=== PATIENT | female | born 1980 | race Caucasian/White ===

== ENCOUNTER 2018-08-01 10:31 | Emergency (ER) | payer OTHER ==
[2018-08-01] MEDS ORDERED: MOTRIN 600 MG PO ONE (10:48)
[2018-08-01] MEDS ORDERED: MOTRIN 600 MG ONE (10:50)
--- NOTE | 2018-08-01 11:07 | ERPHSYRPT ---
- History of Present Illness Time Seen by Provider: 08/01/18 10:40 Source: patient Exam Limitations: clinical condition Patient Subjective Stated Complaint: Pt states "I was playing softball and my ankle rolled under and popped really loud." Triage Nursing Assessment: Pt presented alert and oriented X 3, skin pwd. Pt ambulates with a limp. PT right ankle swollen laterally and bruised. Physician History: PATIENT STATES SHE TWISTED HER RIGHT ANKLE YESTERDAY WHILE PLAYING SOFTBALL. HAS PAIN, SWELLING AND SLIGHT BRUISING OVER OUTER ASPECT OF RIGHT ANKLE. HAS SEVERE PAIN UPON WEIGHT BEARING. Method of Injury: twisted Occurred: yesterday Quality: constant, throbbing Severity of Pain-Max: moderate Severity of Pain-Current: moderate Lower Extremities Pain: ankle: right Modifying Factors: Improves With: movement, other (WEIGHT BEARING) Associated Symptoms: other (PAIN UPON WEIGHT BEARING) Allergies/Adverse Reactions: sulfamethoxazole [From Bactrim] Adverse Reaction (Mild, Verified 07/14/15 19:39) Vomiting trimethoprim [From Bactrim] Adverse Reaction (Mild, Verified 07/14/15 19:39) Vomiting Hx Tetanus, Diphtheria Vaccination/Date Given: No Hx Influenza Vaccination/Date Given: Yes Hx Pneumococcal Vaccination/Date Given: No Immunizations Up to Date: Yes - Review of Systems Constitutional: No Symptoms Musculoskeletal: Injury, Joint Pain, Joint Swelling Neurological: No Symptoms Psychological: No Symptoms - Past Medical History Pertinent Past Medical History: Yes Neurological History: No Pertinent History ENT History: No Pertinent History Cardiac History: No Pertinent History Respiratory History: No Pertinent History Endocrine Medical History: No Pertinent History Musculoskeletal History: Rheumatoid Arthritis GI Medical History: Gallbladder Disease History: No Pertinent History Psycho-Social History: No Pertinent History Female Reproductive Disorders: No Pertinent History Other Medical History: MULTIPLE ORTHOPEDIC SURGERIES, ETC. TO LEFT SHOULDER, BOTH FEET - Past Surgical History Past Surgical History: Yes Neuro Surgical History: No Pertinent History Cardiac: No Pertinent History Respiratory: No Pertinent History Gastrointestinal: Cholecystectomy Genitourinary: No Pertinent History Musculoskeletal: Orthopedic Surgery Female Surgical History: Section, Tubal Ligation Other Surgical History: right oopherectomy and tube removed and left tubal. bilateral laceration repair - Social History Smoking Status: Former smoker How long have you smoked: YRS Exposure to second hand smoke: No Drug Use: none Patient Lives Alone: No - Female History Hx Last Menstrual Period: 07/20/2018 Hx Now: No - Nursing Vital Signs Nursing Vital Signs: Initial Vital Signs Temperature 99.1 F 08/01/18 10:36 Pulse Rate 80 08/01/18 10:36 Respiratory Rate 18 08/01/18 10:36 Blood Pressure 190/91 08/01/18 10:36 O2 Sat by Pulse Oximetry 98 08/01/18 10:36 Pain Scale Pain Intensity 8 - Physical Exam General Appearance: mild distress Ankle Exam: right ankle: limited range of motion, pain, soft tissue tenderness, swelling (MODERATE SWELLING, TENDERNESS, LIMITED RANGE OF TENDERNESS, NO JOINT LAXITY UPON VARUS/VALGUS STRESS, NEGATIVE ANTERIOR DRAW SIGN, RIGHT PEDIS PULSE 2+) SpO2 Interpretation: normal SpO2: 98 - Radiology Exams Right Ankle X-ray Interpretation: Interpreted by me, Negative (SOFT TISSUE SWELLLING WITHOUT FRACTURE OR DISLOCATION) Ordered Tests: Active Orders 24 hr Category Date Time Status Splint STAT Care 08/01/18 11:13 Ordered ANKLE (3 VIEWS) Stat Exams 08/01/18 10:49 Taken Medication Summary Discontinued Medications Generic Name Dose Route Start Last Admin Trade Name Freq PRN Reason Stop Dose Admin Ibuprofen 600 mg 08/01/18 10:48 08/01/18 10:51 Motrin 600 Mg PO 08/01/18 10:49 600 mg STAT ONE Administration Ibuprofen Confirm 08/01/18 10:50 Motrin 600 Mg Administered 08/01/18 10:51 Dose 600 mg .ROUTE .STK-MED ONE - Progress Progress Note: 08/01/18 11:00 MOTRIN 600MG ORALLY, PROVIDED CRUTCHES Counseled pt/family regarding: diagnosis, need for follow-up - Departure Departure Disposition: Home Clinical Impression: RIGHT ANKLE STRAIN Condition: Stable Critical Care Time: No Referrals: WALKER HELMS NP [Primary Care Provider] - Additional Instructions: MOTRIN 600MG EVERY 6 HOURS FOR PAIN NEEDED. TYLENOL #3 EVERY 4 HOURS FOR SEVERE PAIN. AMBULATE USING CRUTCHES NONWEIGHT BEARING RIGHT FOOT FOR 4-5 DAYS. APPLY ICE OVER ANKLE SWELLING EVERY 4 HOURS, 30 MINUTES FOR 48 HOURS. CONSULT YOUR PRIMARY CARE PROVIDER FOR FOLLOWUP IN 1 WEEK. Prescriptions: Codeine Phosphate/APAP #3 [Tylenol #3 Tablet] 1 tab PO Q4H PRN PRN #12 tablet PRN Reason: Pain Ibuprofen 600 mg PO Q6H PRN PRN #20 tablet PRN Reason: Pain
[2018-08-01 11:31] VITALS: BP 180/84; PULSE 74; O2SAT 99
--- NOTE | 2018-08-01 14:46 | XRAY ---
Indication: Pain following softball injury. Comparison: None 3 views of the right ankle demonstrates anterior lateral soft tissue swelling. No other bony, articular, or soft tissue abnormalities.
== END 2018-08-01 11:40 | disposition home or self-care (01) ==
LOC: ED 10:31
DX: S93.401A Sprain of unspecified ligament of right ankle, initial encounter (principal); W50.2XXA Accidental twist by another person, initial encounter; Y92.320 Baseball field as the place of occurrence of the external cause; M25.571 Pain in right ankle and joints of right foot; M25.471 Effusion, right ankle
CPT/HCPCS: 73610; 99284; A9270-GY

== ENCOUNTER 2020-11-15 21:36 | Emergency (ER) | payer OTHER ==
--- NOTE | 2020-11-15 22:38 | ERPHSYRPT ---
- History of Present Illness Time Seen by Provider: 11/15/20 21:59 Source: patient Exam Limitations: no limitations Patient Subjective Stated Complaint: pt states she was on her porch in a rocking chair and fell off the porch while rokcing. states she caught herself with her lt hand and hurt her lt wrist. denies pain anywhere else. denies hitting her head. Triage Nursing Assessment: pt alert and oriented, answers questions approp. pt ambulatory with steady gait noted. respirations nonlabored with lungs cta. skin warm and dry. mild swelling noted to lt wrist and forearm. radial pulse and cap refill wnl. pt moving fingers without diff. Physician History: Patient is a 40-year-old female presents to our ED for evaluation of her left wrist and forearm. Patient states she was rocking on a rocking chair while on a porch. Patient fell off a rocking chair and porch. Patient caught herself with her left arm however now is experiencing some pain at the left wrist and left forearm. No other injuries reported. No BHT or LOC. No neck pain. Cervical spine cleared clinically. Patient is ambulatory with a normal gait. Pain described as an ache that is localized. No radiation. Pain worse with palpation and movement. Pain improved with rest. Patient otherwise healthy. She voices no other complaints or concerns at this time. Occurred: just prior to arrival Method of Injury: fell Quality: constant Severity of Pain-Max: moderate Severity of Pain-Current: mild Extremities Pain Location: forearm: left, wrist: left Modifying Factors: Improves With: movement Associated Symptoms: none Allergies/Adverse Reactions: cefuroxime [From Ceftin] Adverse Reaction (Mild, Verified 11/15/20 22:24) Vomiting sulfamethoxazole [From Bactrim] Adverse Reaction (Mild, Verified 11/15/20 22:24) Vomiting trimethoprim [From Bactrim] Adverse Reaction (Mild, Verified 11/15/20 22:24) Vomiting Hx Tetanus, Diphtheria Vaccination/Date Given: Yes Hx Influenza Vaccination/Date Given: Yes Hx Pneumococcal Vaccination/Date Given: No Immunizations Up to Date: Yes Travel Risk - International Travel Have you traveled outside of the country in past 3 weeks: No - Coronavirus Screening Are you exhibiting any of the following symptoms?: No Close contact with a COVID-19 positive Pt in past 14-21 Days: No - Vaccine Status Have you recieved a Covid-19 vaccination: Yes Functional Tester: Moderna - Vaccination Dates Date of 2cond Vaccination (if applicable): may 2020 - Review of Systems Constitutional: No Symptoms, No Fever, No Chills Eyes: No Symptoms Ears, Nose, & Throat: No Symptoms Respiratory: No Symptoms, No Cough, No Dyspnea Cardiac: No Symptoms, No Chest Pain, No Edema, No Syncope Abdominal/Gastrointestinal: No Symptoms, No Abdominal Pain, No Nausea, No Vomiting, No Diarrhea Genitourinary Symptoms: No Symptoms, No Dysuria Musculoskeletal: No Symptoms, No Back Pain, No Neck Pain Skin: No Symptoms, No Rash Neurological: No Symptoms, No Dizziness, No Focal Weakness, No Sensory Changes Psychological: No Symptoms Endocrine: No Symptoms Hematologic/Lymphatic: No Symptoms Immunological/Allergic: No Symptoms All Other Systems: Reviewed and Negative - Past Medical History Pertinent Past Medical History: Yes Neurological History: No Pertinent History ENT History: No Pertinent History Cardiac History: Hypertension Respiratory History: No Pertinent History Endocrine Medical History: No Pertinent History Musculoskeletal History: No Pertinent History GI Medical History: Gallbladder Disease History: No Pertinent History Psycho-Social History: No Pertinent History Female Reproductive Disorders: No Pertinent History Other Medical History: MULTIPLE ORTHOPEDIC SURGERIES, ETC. TO LEFT SHOULDER, BOTH FEET - Past Surgical History Past Surgical History: Yes Neuro Surgical History: No Pertinent History Cardiac: No Pertinent History Respiratory: No Pertinent History Gastrointestinal: Cholecystectomy Genitourinary: No Pertinent History Musculoskeletal: Orthopedic Surgery Female Surgical History: Section, Tubal Ligation Other Surgical History: right oopherectomy and tube removed and left tubal. bilateral laceration repair, sinus surgery - Social History Smoking Status: Former smoker How long have you smoked: YRS Exposure to second hand smoke: No Drug Use: none Patient Lives Alone: No - Female History Hx Last Menstrual Period: oct Hx Now: No - Nursing Vital Signs Nursing Vital Signs: Initial Vital Signs Temperature 98.5 F 11/15/20 21:54 Pulse Rate 84 11/15/20 21:54 Respiratory Rate 16 11/15/20 21:54 Blood Pressure 149/95 11/15/20 21:54 O2 Sat by Pulse Oximetry 99 11/15/20 21:54 Pain Scale Pain Intensity 5 - Physical Exam General Appearance: no apparent distress, alert Eyes, Ears, Nose, Throat Exam: moist mucous membranes Neck Exam: non-tender, supple Cardiovascular/Respiratory Exam: chest non-tender, normal breath sounds, regular rate/rhythm, no respiratory distress Abdominal Exam: non-tender, No guarding Back Exam: normal inspection, normal range of motion, No CVA tenderness, No vertebral tenderness Shoulder Exam: normal inspection, non-tender, no evidence of injury, normal ROM Elbow/Forearm Exam: normal inspection, non-tender, no evidence of injury Wrist Exam: limited ROM, soft tissue tenderness (Left wrist limited range of motion due to pain. There is soft tissue swelling and tenderness. No obvious deformity.), swelling, No abrasions Hand Exam: normal inspection, non-tender, no evidence of injury, normal ROM Neuro/Tendon Exam: normal sensation, normal motor functions Mental Status Exam: alert, oriented x 3, cooperative Skin Exam: normal color, warm, dry SpO2 Interpretation: normal SpO2: 99 O2 Delivery: Room Air - Course Nursing assessment & vital signs reviewed: Yes - Radiology Exams Forearm X-ray Interpretation: Interpreted by me (No fractures or dislocations. Dorsal wrist soft tissue swelling. Otherwise unremarkable.) Wrist X-ray Interpretation: Interpreted by me (No fracture dislocations. Dorsal wrist soft tissue swelling. Otherwise unremarkable x-ray.) Ordered Tests: Active Orders 24 hr Category Date Time Status FOREARM Stat Exams 11/15/20 22:13 Taken WRIST (MIN 3 VIEWS) Stat Exams 11/15/20 22:13 Taken - Progress Progress: improved Progress Note: Patient reassessed. She feels well. Pain well controlled. Patient declined pain medication. X-rays negative for fracture dislocation. There is dorsal wrist swelling. We will provide patient with a wrist cock-up splint. [id number] analgesics as needed. Patient to follow-up with primary care doctor within 48 hours for reevaluation. Patient understands that if pain continues she may require repeat imaging studies. Portions of this note were created with voice recognition technology. There may be grammatical, spelling, punctuation or sound alike errors 11/16/20 00:06 Counseled pt/family regarding: diagnosis, need for follow-up, rad results - Departure Departure Disposition: Home Clinical Impression: Wrist contusion, Wrist sprain Condition: Stable Critical Care Time: No Referrals: WALKER HELMS NP [Primary Care Provider] - Additional Instructions: Discharge/Care Plan KATIE PHILLIPSE was seen on 11/16/20 in the Emergency Room. The patient was counseled regarding Diagnosis,Lab results, Imaging studies, need for follow up and when to return to the Emergency Room. Prescriptions given: Discharge Note I have spoken with the patient and/or caregivers. I have explained the patient's condition, diagnosis and treatment plan based on the information available to me at this time. I have answered the patient's and/or caregiver's questions and addressed any concerns. The patient and/or caregivers have as good understanding of the patient's diagnosis, condition and treatment plan as can be expected at this point. The vital signs have been stable. The patient's condition is stable and appropriate for discharge from the emergency department. The patient will pursue further outpatient evaluation with the primary care physician or other designated or consulting physician as outlined in the discharge instructions. The patient and/or caregivers are agreeable to this plan of care and follow-up instructions have been explained in detail. The patient and/or caregivers have received these instruction. The patient/and or caregivers are aware that any significant change in condition or worsening of symptoms should prompt an immediate return to this or the closest emergency department or call 911.
[2020-11-16 00:36] VITALS: BP 147/89; PULSE 74; O2SAT 96
--- NOTE | 2020-11-16 09:23 | XRAY ---
Indication: Pain and swelling following fall. Comparison: None 2 view left forearm obtained. No bony, articular, or soft tissue abnormalities.
--- NOTE | 2020-11-16 09:33 | XRAY ---
Indication: Pain and swelling following fall. Comparison: None 3 view left wrist obtained. No bony, articular, or soft tissue abnormalities.
== END 2020-11-16 00:34 | disposition home or self-care (01) ==
LOC: ED 21:36
DX: S60.212A Contusion of left wrist, initial encounter (principal)
CPT/HCPCS: 73090; 73110; 99284; L3908

== ENCOUNTER 2021-06-18 08:19 | Emergency (ER) | payer OTHER ==
--- NOTE | 2021-06-18 08:24 | ERPHSYRPT ---
- History of Present Illness Time Seen by Provider: 06/18/21 08:23 Source: patient Exam Limitations: no limitations Physician History: This is a 41-year-old white female patient of nurse practitioner Lynette who presented to [facility] this morning secondary to sore throat and gagging. Symptoms began this morning. Patient was evaluated and then sent to the emergency department because patient's uvula is very swollen. There is no stridor. Patient is not short of breath. Patient does not have chest pain. Patient is a former smoker. She has no known exposure to individuals with similar symptoms or with flu diagnosis. Patient has a history of recurrent strep pharyngitis Timing/Duration: today Cough Quality/Degree: mild (Described as more of a gagging) Possible Cause: no prior episodes Modifying Factors: Improves With: other (Gagging) Associated Symptoms: sore throat, other (Gagging), No chest pain/soreness, No shortness of breath Allergies/Adverse Reactions: cefuroxime [From Ceftin] Adverse Reaction (Mild, Verified 11/15/20 22:24) Vomiting sulfamethoxazole [From Bactrim] Adverse Reaction (Mild, Verified 11/15/20 22:24) Vomiting trimethoprim [From Bactrim] Adverse Reaction (Mild, Verified 11/15/20 22:24) Vomiting Hx Tetanus, Diphtheria Vaccination/Date Given: Yes Hx Influenza Vaccination/Date Given: Yes Hx Pneumococcal Vaccination/Date Given: No Travel Risk - International Travel Have you traveled outside of the country in past 3 weeks: No - Coronavirus Screening Are you exhibiting any of the following symptoms?: No Close contact with a COVID-19 positive Pt in past 14-21 Days: No - Vaccine Status Have you recieved a Covid-19 vaccination: Yes [employer] Operator: Moderna - Vaccination Dates Date of 2cond Vaccination (if applicable): may 2020 - Review of Systems Constitutional: No Symptoms Eyes: No Symptoms Ears, Nose, & Throat: Throat Pain, Painful Swallowing, Other (Gagging) Respiratory: No Symptoms Cardiac: No Symptoms Abdominal/Gastrointestinal: No Symptoms Genitourinary Symptoms: No Symptoms Musculoskeletal: No Symptoms Skin: No Symptoms Neurological: No Symptoms Psychological: No Symptoms Endocrine: No Symptoms Hematologic/Lymphatic: No Symptoms Immunological/Allergic: No Symptoms All Other Systems: Reviewed and Negative - Past Medical History Pertinent Past Medical History: Yes Neurological History: No Pertinent History ENT History: No Pertinent History Cardiac History: Hypertension Respiratory History: No Pertinent History Endocrine Medical History: No Pertinent History Musculoskeletal History: No Pertinent History GI Medical History: Gallbladder Disease History: No Pertinent History Psycho-Social History: No Pertinent History Female Reproductive Disorders: No Pertinent History Other Medical History: MULTIPLE ORTHOPEDIC SURGERIES, ETC. TO LEFT SHOULDER, BOTH FEET - Past Surgical History Past Surgical History: Yes Neuro Surgical History: No Pertinent History Cardiac: No Pertinent History Respiratory: No Pertinent History Gastrointestinal: Cholecystectomy Genitourinary: No Pertinent History Musculoskeletal: Orthopedic Surgery Female Surgical History: Section, Tubal Ligation Other Surgical History: right oopherectomy and tube removed and left tubal. bilateral laceration repair, sinus surgery - Social History Smoking Status: Former smoker How long have you smoked: YRS Exposure to second hand smoke: No Drug Use: none Patient Lives Alone: No - Nursing Vital Signs Nursing Vital Signs: Initial Vital Signs Temperature 98.1 F 06/18/21 08:26 Pulse Rate 89 06/18/21 08:26 Blood Pressure 132/99 06/18/21 08:26 O2 Sat by Pulse Oximetry 100 06/18/21 08:26 Pain Scale Pain Intensity 0 - Physical Exam General Appearance: no apparent distress, alert, anxiety, obese Eye Exam: PERRL/EOMI, eyes nml inspection Ears, Nose, Throat Exam: pharyngeal erythema (Mild), other (Enlarged edematous uvula) Neck Exam: normal inspection, non-tender, supple, full range of motion Respiratory Exam: normal breath sounds, lungs clear, airway intact, No chest tenderness, No respiratory distress Cardiovascular Exam: regular rate/rhythm, normal heart sounds, normal peripheral pulses Gastrointestinal/Abdomen Exam: soft, normal bowel sounds, No tenderness Pelvic Exam: not done Rectal Exam: not done Back Exam: normal inspection, normal range of motion, No CVA tenderness, No vertebral tenderness Extremity Exam: normal inspection, normal range of motion, pelvis stable Neurologic Exam: alert, oriented x 3, cooperative, shake backboard notcher II-XII nml as tested, normal mood/affect, nml cerebellar function, nml station & gait, sensation nml Skin Exam: normal color, warm, dry Lymphatic Exam: No adenopathy SpO2 Interpretation: normal O2 Delivery: Room Air - Course Nursing assessment & vital signs reviewed: Yes Ordered Tests: Active Orders 24 hr Category Date Time Status IV Insertion STAT Care 06/18/21 08:28 Active BLOOD CULTURE Stat Lab 06/18/21 08:44 Received CBC W DIFF Stat Lab 06/18/21 08:36 Completed CMP Stat Lab 06/18/21 08:36 Completed INFLUENZA A+B AMEENA Stat Lab 06/18/21 08:38 Received [place] Screen Stat Lab 06/18/21 08:36 Received Medication Summary Discontinued Medications Generic Name Dose Route Start Last Admin Trade Name Lynnette PRN Reason Stop Dose Admin Hydrocodone Bitart/Acetaminophen 10 ml 06/18/21 08:29 06/18/21 08:42 Hydrocodone/Acetaminophen 5 Ml Udcup PO 06/18/21 08:30 10 ml STAT STA Administration Hydrocodone Bitart/Acetaminophen Confirm 06/18/21 08:40 Hydrocodone/Acetaminophen 5 Ml Udcup Administered 06/18/21 08:41 Dose 10 ml .ROUTE .STK-MED ONE Methylprednisolone Sodium 0 mg 06/18/21 08:29 06/18/21 08:42 Succinate 125 mg/ Sterile IV 06/18/21 08:30 125 mg Water 2 ml STAT ONE Administration Methylprednisolone Sodium Succinate Confirm 06/18/21 08:40 Methylprednis Sod Succ 125 Mg/2 Ml Vial Administered 06/18/21 08:41 Dose 125 mg .ROUTE .STK-MED ONE Sterile Water Confirm 06/18/21 08:40 Water For Injection,Sterile 10 Ml Vial Administered 06/18/21 08:41 Dose 10 ml IJ .STK-MED ONE Lab/Rad Data: Laboratory Result Diagrams 06/18/21 08:36 06/18/21 08:36 Laboratory Results 06/18/21 06/18/21 06/18/21 Range/Units 08:38 08:36 08:36 WBC 7.7 (4.0-10.5) K/mm3 RBC 4.70 (4.1-5.4) M/mm3 Hgb 14.8 (12.0-16.0) gm/dl Hct 42.7 (35-47) % MCV 90.9 (78-100) fl MCH 31.5 (26-32) pg MCHC 34.7 (32-36) g/dl RDW 12.8 (11.5-14.0) % Plt Count 417 (150-450) K/mm3 MPV 8.7 (7.5-11.0) fl Gran % 62.3 (36.0-66.0) % Eos # (Auto) 0.08 (0-0.5) Absolute Lymphs (auto) 2.24 (1.0-4.6) Absolute Monos (auto) 0.57 (0.0-1.3) Lymphocytes % 28.9 (24.0-44.0) % Monocytes % 7.4 (0.0-12.0) % Eosinophils % 1.0 (0.00-5.0) % Basophils % 0.4 (0.0-0.4) % Absolute Granulocytes 4.82 (1.4-6.9) Basophils # 0.03 (0-0.4) Sodium 139 (137-145) mmol/L Potassium 3.5 (3.5-5.1) mmol/L Chloride 101 (98-107) mmol/L Carbon Dioxide 29 (22-30) mmol/L Anion Gap 12.9 (5-15) MEQ/L BUN 17 (7-17) mg/dL Creatinine 0.82 (0.52-1.04) mg/dL Estimated GFR > 60.0 ML/MIN Glucose 108 H (74-106) mg/dL Calcium 9.0 (8.4-10.2) mg/dL Total Bilirubin 0.50 (0.2-1.3) mg/dL AST 27 (14-36) U/L ALT 46 H (0-35) U/L Alkaline Phosphatase 66 (38-126) U/L Serum Total Protein 7.0 (6.3-8.2) g/dL Albumin 4.1 (3.5-5.0) g/dL Group A Strep Antibody NOT DETECTED (NEGATIVE) - Progress Progress: improved Air Movement: good Progress Note: 06/18/21 11:00 Patient states that she is feeling much better. She is not gagging in her throat has less pain. Her oxygen saturations on room air is 100%. She has no stridor on exam. Blood Culture(s) Obtained: Yes Antibiotics given: No Counseled pt/family regarding: lab results, diagnosis, need for follow-up - Departure Departure Disposition: Home Clinical Impression: Pharyngitis, Uvulitis Condition: Stable Critical Care Time: No Referrals: WALKER HELMS NP [Primary Care Provider] - Follow up/PCP as directed Additional Instructions: Drink plenty of cool liquids. Take your medication as prescribed. Return to the emergency department if symptoms worsen. Follow-up with your primary care provider for persistent symptoms. Prescriptions: Hydrocodone/Acetaminophen [Hydrocodone-Acetamn 7.5-325/15] 10 ml PO Q8H PRN PRN #120 ml MDD 30 ml PRN Reason: Cough Prednisone 10 mg [Deltasone 10 mg] 10 mg PO TID #12 tablet
[2021-06-18] MEDS ORDERED: solu-MEDROL 125 MG, Sterile H2O 10 ml 2 ML IV ONE ×2 (08:29)
[2021-06-18] MEDS ORDERED: HYDROCODONE-ACETAMIN 2.5-108/5 ML SOLUTION PO STA (08:29)
[2021-06-18] MEDS ORDERED: Sterile H2O 10 ml IJ ONE (08:40)
[2021-06-18] MEDS ORDERED: HYDROCODONE-ACETAMIN 2.5-108/5 ML SOLUTION ONE (08:40)
[2021-06-18] MEDS ORDERED: solu-MEDROL ONE (08:40)
[2021-06-18 09:01] LABS: Absolute Neutrophil Ct (ANC) 4.82 (1.4-6.9); Basophil (Absolute #) 0.03 (0-0.4); Eosinophil (Absolute #) 0.08 (0-0.5); Hematocrit 42.7 % (35-47); Hemoglobin 14.8 gm/dl (12.0-16.0); Lymphocyte (Absolute #) 2.24 (1.0-4.6); Lymphocytes % 28.9 % (24.0-44.0); Mean Cell Volume 90.9 fl (78-100); Mean Corpuscular Hemoglobin 31.5 pg (26-32); Mean Corpuscular Hgb Concent. 34.7 g/dl (32-36); Mean Platelet Volume 8.7 fl (7.5-11.0); Monocyte (Absolute #) 0.57 (0.0-1.3); Monocytes % 7.4 % (0.0-12.0); Neutrophil % 62.3 % (36.0-66.0); Platelet Count 417 K/mm3 (150-450); Red Cell Distribution Width 12.8 % (11.5-14.0); White Blood Count 7.7 K/mm3 (4.0-10.5)
[2021-06-18 09:15] LABS: ALBUMIN 4.1 g/dL (3.5-5.0); ALKALINE PHOSPHATASE 66 U/L (38-126); ANION GAP 12.9 MEQ/L (5-15); BLOOD UREA NITROGEN 17 mg/dL (7-17); CHLORIDE 101 mmol/L (98-107); Carbon Dioxide 29 mmol/L (22-30); Creatinine 1 0.82 mg/dL (0.52-1.04); EST GLOMERULAR FILTRATION RATE > 60.0 ML/MIN; Glucose 108 mg/dL (74-106); Potassium 3.5 mmol/L (3.5-5.1); SGOT/AST 27 U/L (14-36); SGPT/ALT 46 U/L (0-35); SODIUM 139 mmol/L (137-145)
[2021-06-18 11:00] LABS: INFLUENZA A NEGATIVE (NEGATIVE); INFLUENZA B NEGATIVE (NEGATIVE)
[2021-06-18 11:11] VITALS: BP 124/82; PULSE 76; O2SAT 97
== END 2021-06-18 11:15 | disposition home or self-care (01) ==
LOC: ED 08:19
DX: J02.9 Acute pharyngitis, unspecified (principal); K12.2 Cellulitis and abscess of mouth; R05.9 Cough, unspecified; I10 Essential (primary) hypertension; Z79.891 Long term (current) use of opiate analgesic; Z79.52 Long term (current) use of systemic steroids
CPT/HCPCS: 36000; 36415; 80053; 85025; 86308; 87040; 87400; 87651; 96374; 99284; J2930; A9270-GY

== ENCOUNTER 2023-07-12 14:44 | Emergency (ER) | payer OTHER ==
[2023-07-12] MEDS ORDERED: XYLOCAINE 1% HCL 20 ML MDV ONE (14:54)
[2023-07-12 14:59] VITALS: BP 118/81; PULSE 86; RESP 18; TEMP 97.1; O2SAT 100
[2023-07-12] MEDS ORDERED: Adacel Vial IM ONE ×2 (15:05→15:07)
[2023-07-12] MEDS: Adacel Vial IM ONE (15:06)
--- NOTE | 2023-07-12 15:10 | ERPHSYRPT ---
- History of Present Illness Time Seen by Provider: 07/12/23 15:05 Source: patient Exam Limitations: no limitations Patient Subjective Stated Complaint: pt here for pomp[place] grass in[place] into left index finger, Triage Nursing Assessment: pt alert,walked in, resp easy. skin w/d/p, has pomp[place] grass to left index finger, no bleeding noted, Physician History: pt here for pomp[place] grass in[place] into left index finger, Timing/Duration: today Severity: mild Associated Symptoms: denies symptoms Allergies/Adverse Reactions: cefuroxime [From Ceftin] Adverse Reaction (Mild, Verified 07/12/23 14:53) Vomiting sulfamethoxazole [From Bactrim] Adverse Reaction (Mild, Verified 07/12/23 14:53) Vomiting trimethoprim [From Bactrim] Adverse Reaction (Mild, Verified 07/12/23 14:53) Vomiting Home Medications: Atomoxetine HCl 40 mg PO DAILY 07/12/23 [History] Lisinopril 10 mg [Zestril 10 MG] 10 mg PO DAILY 07/12/23 [History] Hx Tetanus, Diphtheria Vaccination/Date Given: No Hx Influenza Vaccination/Date Given: Yes Hx Pneumococcal Vaccination/Date Given: No Travel Risk - International Travel Have you traveled outside of the country in past 3 weeks: No - Emerging Infectious Disease Are you exhibiting symptoms associated with any current EIDs: No - Review of Systems Constitutional: No Symptoms Eyes: No Symptoms Ears, Nose, & Throat: No Symptoms Respiratory: No Symptoms Cardiac: No Symptoms Abdominal/Gastrointestinal: No Symptoms Musculoskeletal: No Symptoms Skin: No Symptoms Neurological: No Symptoms - Past Medical History Pertinent Past Medical History: Yes Neurological History: No Pertinent History ENT History: No Pertinent History Cardiac History: Hypertension Respiratory History: No Pertinent History Endocrine Medical History: No Pertinent History Musculoskeletal History: No Pertinent History GI Medical History: Gallbladder Disease History: No Pertinent History Psycho-Social History: No Pertinent History Female Reproductive Disorders: No Pertinent History Other Medical History: MULTIPLE ORTHOPEDIC SURGERIES, ETC. TO LEFT SHOULDER, BOTH FEET - Past Surgical History Past Surgical History: Yes Neuro Surgical History: No Pertinent History Cardiac: No Pertinent History Respiratory: No Pertinent History Gastrointestinal: Cholecystectomy Genitourinary: No Pertinent History Musculoskeletal: Orthopedic Surgery Female Surgical History: Section, Tubal Ligation Other Surgical History: right oopherectomy and tube removed and left tubal. bilateral laceration repair, sinus surgery - Female History Hx Last Menstrual Period: month ago Hx Now: No - Social History Smoking Status: Former smoker How long have you smoked: YRS Exposure to second hand smoke: No Drug Use: none Patient Lives Alone: No - Nursing Vital Signs Nursing Vital Signs: Initial Vital Signs Temperature 97.1 F 07/12/23 14:58 Pulse Rate 86 07/12/23 14:58 Respiratory Rate 18 07/12/23 14:58 Blood Pressure 118/81 07/12/23 14:58 O2 Sat by Pulse Oximetry 100 07/12/23 14:58 Pain Scale Pain Intensity 4 - Physical Exam General Appearance: no apparent distress Eye Exam: PERRL/EOMI Ears, Nose, Throat Exam: normal ENT inspection Neck Exam: normal inspection Respiratory Exam: normal breath sounds Cardiovascular Exam: regular rate/rhythm Gastrointestinal/Abdomen Exam: soft Extremity Exam: other (5 cms long embedded wooden stick) Neurologic Exam: alert, oriented x 3, cooperative SpO2: 100 Procedures - Additional Procedures Progress: wooden foreign body removed without any complication. Finger block anaesthesia used. 3 cc 1% lidocaine used. Patient tolerasted procedure well - Course Nursing assessment & vital signs reviewed: Yes Ordered Tests: Active Orders 24 hr Category Date Time Status Wound Care STAT Care 07/12/23 15:04 Active Medication Summary Discontinued Medications Generic Name Dose Route Start Last Admin Trade Name Lynnette PRN Reason Stop Dose Admin Diphtheria/Tetanus/Acell Pertussis 0.5 ml 07/12/23 15:04 Tdap --Diph,Pertuss(Acell),Tet Vac/Pf 0.5 Ml Vial IM 07/12/23 15:05 .ONCE ONE Lidocaine HCl Confirm 07/12/23 14:54 Lidocaine Hcl 1% 20 Ml Mdv 20 Ml Ml Administered 07/12/23 14:55 Dose 5 ml .ROUTE .STK-MED ONE - Progress Progress: improved Counseled pt/family regarding: need for follow-up Medical Desision Making - Diagnostic Testing Diagnostic test were ordered, analyzed, and reviewed by me: No - Risk of complications Minimal Risk: Minimal risk of morbidity - Departure Departure Disposition: Home Clinical Impression: Foreign body (FB) in soft tissue Foreign body of finger of left hand Qualifiers: Encounter type: initial encounter Qualified Code(s): S60.459A - Superficial foreign body of unspecified finger, initial encounter Condition: Stable Critical Care Time: No Referrals: WALKER HELMS, LEAD ACCOUNTANT [Primary Care Provider] - Follow up/PCP as directed Instructions: Wound Care (DC), Taking care of cuts, scrapes, and puncture wounds, Wound Care ED Additional Instructions: Discharge/Care Plan KATIE PHILLIPS was seen on 07/12/23 in the Emergency Room. The patient was counseled regarding Diagnosis,Lab results, Imaging studies, need for follow up and when to return to the Emergency Room. Prescriptions given: Discharge Note I have spoken with the patient and/or caregivers. I have explained the patient's condition, diagnosis and treatment plan based on the information available to me at this time. I have answered the patient's and/or caregiver's questions and addressed any concerns. The patient and/or caregivers have as good understanding of the patient's diagnosis, condition and treatment plan as can be expected at this point. The vital signs have been stable. The patient's condition is stable and appropriate for discharge from the emergency department. The patient will pursue further outpatient evaluation with the primary care physician or other designated or consulting physician as outlined in the discharge instructions. The patient and/or caregivers are agreeable to this plan of care and follow-up instructions have been explained in detail. The patient and/or caregivers have received these instruction. The patient/and or caregivers are aware that any significant change in condition or worsening of symptoms should prompt an immediate return to this or the closest emergency department or call 911. KATIE PHILLIPS was seen on 07/12/23 n the Emergency Room. At that time you were treated for an emergent condition, during your visit Laboratory, Radiology and/or other procedures may have been ordered. It is very important that you follow-up with your Primary Care Physician WALKER HELMS within the next 24-48 hours to review your Emergency Room visit and the final results of testing that was ordered. Some test results such as Urine Cultures, Blood Cultures, and other cultures if ordered will not be finalized for 24-48 hours. If you do not have a Primary Care Provider please call the medical records department at [phone] ext [phone] to obtain a copy of your results or you may sign into our patient portal to obtain these results by visiting us @ [email or web address] and completing the following steps: 1. Click on the Patient Portal link 2. Click the Patient Self Enrollment Link to complete the enrollment form and entering your 3. Once the enrollment form is completed you will receive an email with a temporary ID and password at the email address you provided. 4. Next choose a user name and password. Your user name must be at least 4 characters long and your password must be at least 4 characters long. 5. Choose a security question from the list and provide your answer to the question. If you already have signed into the Health Portal you may access your Health Care Information 06/10 by the following steps: 1. Login to our website @ [email or web address] 2. Enter your original user name and password. FAQS The [facility] Health Portal is an online tool that contains your Lab Results, Radiology Reports, Visit History, Discharge Instructions and Health Summary Lab and Radiology Results will not be available for 72 hours on the portal. The Portal is a secure site, passwords are encryted and URLs are re-written so they cannot be copied and pasted. You and authorized family members are the only ones who can access your Portal. Also there is a timeout feature that protects your information if you leave the Portal page open. If you have technical difficulty please use the Contact Us link on the page this will allow you to submit any questions you have regarding the Portal or you may contact the Medical Record Department at [phone] ext [phone]. Prescriptions: Doxycycline Hyclate 100 mg [Vibramycin 100 MG] 100 mg PO BID #15 tab
[2023-07-12] MEDS ORDERED: BACIGUENT PACKET ONE (15:16)
[2023-07-12] MEDS: XYLOCAINE 1% HCL 20 ML MDV IJ ONE (15:34)
[2023-07-12] MEDS: BACIGUENT PACKET TP ONE (15:34)
== END 2023-07-12 15:36 | disposition home or self-care (01) ==
LOC: ED 14:44
DX: S60.451A Superficial foreign body of left index finger, initial encounter (principal); I10 Essential (primary) hypertension; Z79.899 Other long term (current) drug therapy; Z23 Encounter for immunization
CPT/HCPCS: 90471; 90715; 99283; A9270-GY